=== PATIENT | female | born 2005 | race Asian ===

== ENCOUNTER 2023-06-12 06:26 | Emergency (ER) | payer OTHER, SELFPAY ==
[2023-06-12 06:34] VITALS: BP 113/68; PULSE 86; RESP 14; TEMP 37.2; O2SAT 98; BMI 22.7
--- NOTE | 2023-06-12 07:41 | ED_ITS ---
HPI - General Adult General Chief complaint: General Medical Stated complaint: l side facial swelling Time Seen by Provider: 06/12/23 07:41 History of Present Illness HPI narrative: The patient is an ordinarily healthy 17-year-old who says that she had stayed up all night playing games on her phone. She says it is not unusual for her to stay up all night. Early this morning she had eaten chicken nuggets but had not been exposed to anything else unusual. At around 5 or 05:30 this morning she noticed that there was some swelling on the left side of her face near the angle of the jaw. She felt that it got quite swollen and was concerned and came to the emergency room. While waiting to be seen the swelling has entirely resolved. The swelling was not painful. It was not itchy. She did not have any trouble breathing. She did not have fever, sweats, or chills. No bad taste in her mouth. No dental pain. No ear pain. Related Data Allergies Allergy/AdvReac Type Severity Reaction Status Date / Time mupirocin AdvReac Rash Verified 06/12/23 07:01 Review of Systems Review of Systems: Yes all other systems are reviewed and are negative Physical Exam ED Vital Signs: Vital Signs - 24 hr 06/12/23 06:34 Temperature 98.9 F Pulse Rate 86 Respiratory Rate 14 Blood Pressure 113/68 Pulse Oximetry 98 Oxygen Delivery Method Room Air BMI result Body Mass Index 22.7 Const Other: The patient is a 17-year-old female who looks as though she is ordinarily healthy and she looks entirely well. No obvious abnormalities were apparent on general exam. No obvious signs of illness or distress [facility] Other: The appearance of the face is unremarkable. The face is symmetrical. There is no swelling apparent. No intraoral abnormality. The pharynx is normal. Dentition is normal. No intraoral swelling or erythema. Eyes Other: Pupils are round equal, conjunctivae are clear, extraocular movements grossly intact Neck Other: No cervical adenopathy, the neck is supple Resp Other: No wheezing Effort & Inspection: normal respiratory effort Auscultation: clear to auscultation bilaterally Cardio Rate: regular rate Rhythm: regular rhythm Heart sounds: S1 normal heart sound present and S2 normal heart sound present Skin Other: Skin is dry and unremarkable. No erythema. No hives. No swelling. Neuro Other: The patient is awake, alert, oriented, appropriate. Mental status is normal. Demeanor is nontoxic. She looks entirely neurologically intact. Medical Decision Making Medical Decision Making [facility] Narrative: The patient is an ordinarily healthy 17-year-old who experienced transient swelling of the left side of her face in the area of the left parotid gland. By the time of my exam the patient has swelling has entirely resolved. The entire episode lasted less than 2 hours. The swelling was not associated with any pain or itchiness. No other symptoms of an allergic reaction. No fever, sweats, chills. There is no sign of any dental problem. There is no palpable abnormality in the region of the parotid gland now. No cervical adenopathy. Overall I do not have a good explanation for the patient has transient left- sided facial swelling. She looks entirely well now and I think she may be discharged to follow up with her regular doctor or return if worse. Discharge Plan Discharge Clinical Impression: Left facial swelling Additional Instructions: The reason for the episode of swelling you experienced is not clear to me. Since your symptoms have spontaneously improved I do not think any intervention is necessary. Please contact your regular doctor if anything like this ever happens you again. If you have any recurrence that is significant or distressing in any way please return to the emergency room for further evaluation. Referrals: Jayla Tabor MD [Primary Care Provider] - (transient left facial swelling of unclear etiology)
[2023-06-12 07:58] VITALS: BP 102/49; PULSE 78; RESP 16; TEMP 36.6; O2SAT 95
== END 2023-06-12 07:58 | disposition home or self-care (01) ==
LOC: HO.ED 07:41
PROVIDERS: Emergency Provider Emergency Medicine; PCP Pediatrics
DX: R22.0 Localized swelling, mass and lump, head (principal)
CPT/HCPCS: 99282